=== PATIENT | female | born 1965 | race Caucasian/White ===

== ENCOUNTER 2020-11-10 12:38 | Outpatient (REF) | payer MEDICAID, SELFPAY ==
[2020-11-10 14:32] LABS: Alanine Aminotransferase 12 U/L (0-31); Albumin Level 4.2 g/dL (3.5-5.0); Alkaline Phosphatase 59 U/L (39-117); Anion Gap 12 (12-20); Aspartate Amino Transferase 13 U/L (5-31); Bilirubin Total 0.3 mg/dL (0.0-1.0); Blood Urea Nitrogen 12 mg/dL (9-16); Calcium 9.2 mg/dL (8.4-10.2); Carbon Dioxide 26 mmol/L (22-29); Chloride 107 mmol/L (96-108); Estimated Glomerular Filt Rate > 60; Glucose Random 93 mg/dL (60-115); Potassium 4.3 mmol/L (3.3-5.1); Sodium 141 mmol/L (135-145); Total Protein 7.4 g/dL (6.5-8.0)
[2020-11-10 14:53] LABS: Vitamin D 25-OH Total 29.7 ng/mL (>30)
[2020-11-11 15:56] LABS: Calcium (PTHI) 9.4 mg/dL (8.6-10.4); PTHI 47 pg/mL (14-64)
== END 2020-11-10 12:39 | disposition home or self-care (01) ==
LOC: HO.LAB 12:38
PROVIDERS: PCP Emergency Medicine; Visit Provider Internal Medicine
DX: E55.9 Vitamin D deficiency, unspecified (principal); R73.03 Prediabetes; Z86.39 Personal history of other endocrine, nutritional and metabolic disease; Z79.899 Other long term (current) drug therapy
CPT/HCPCS: 36415; 80053; 82306; 82330; 83970; 84100; 99202

== ENCOUNTER 2020-12-09 10:28 | Outpatient (REF) | payer MEDICAID, SELFPAY ==
--- NOTE | ~2020-12-09 | MM_ITS ---
EXAMINATION: BONE DENSITOMETRY CLINICAL INDICATION: Personal history of other endocrine, nutritional. COMPARISON: None (current study represents initial baseline exam). TECHNIQUE: Using a [employer] DXA System (software version: 13.1) manufactured by [employer], dual-energy x-ray absorptiometry was performed of the lumbar spine, left hip and left forearm radius 33%. The images are of good technical quality. Summary results are attached. FINDINGS: AP SPINE L1-L4: BMD 1.018 g/cm2, Z-score -1.5, T-score -1.4, osteopenia. LEFT FEMUR, NECK: BMD 0.850 g/cm2, Z-score -1.0, T-score -1.4, osteopenia. LEFT FEMUR, TOTAL: BMD 1.005 g/cm2, Z-score 0.0, T-score 0.0, normal. LEFT FOREARM RADIUS 33%: BMD 0.742 g/cm2, Z-score -1.0, T-score -1.5, osteopenia. IDENTIFIED RISK FACTORS: Hyperparathyroidism, menopause. HISTORY OF FRACTURE: None listed. MEDICATIONS: None listed. MM/XR DEXA appendicular skeleton IMPRESSION: 1. DIAGNOSIS: Osteopenia based on the lowest T-score value of -1.5 in the forearm radius 33% applying World Health Organization criteria. 2. 10-YEAR FRACTURE RISK PREDICTION, FRAX: Major osteoporotic fracture (clinical spine, forearm, hip or shoulder) 3.1%. Hip fracture 0.2%. 3. Treatment Recommendations: NOF guidelines recommend consideration for treatment in postmenopausal women and men age 50 and older presenting with the following: -A hip or vertebral (clinical or morphometric) fracture. -T-score less than or equal to -2.5 at the femoral neck or spine after appropriate evaluation to exclude secondary causes. -Low bone mass at the hip or spine and a 10-year fracture probability by FRAX of greater than or equal to 3% for hip fracture or greater than or equal to 20% for major osteoporotic fracture based on the [place] adapted WHO algorithm. 4. Other Recommendations: All treatment decisions require clinical judgment and consideration of individual patient factors, including patient preferences, comorbidities, previous drug use, risk factors not captured in the FRAX model (e.g. frailty, falls, vitamin D deficiency, increased bone turnover, interval significant decline in bone density) and possible under or overestimation of fracture risk by FRAX. Additional medical evaluation for secondary cause of low bone mineral density may be appropriate. FUTURE SCAN RECOMMENDATION: People with diagnosed cases of osteoporosis or at high risk for fracture should have regular bone mineral density tests. For patients eligible for Medicare, routine testing is allowed once every 2 years. The testing frequency can be increased to one year for patients who have rapidly progressing disease, those who are receiving or discontinuing medical therapy to restore bone mass, or have additional risk factors.
--- NOTE | ~2020-12-09 | MM_ITS ---
EXAMINATION: MM SCREENING DIGITAL BREAST TOMOSYNTHESIS, BILATERAL CLINICAL INFORMATION: Screening. Asymptomatic. The lifetime risk of breast cancer based on the Tyrer-Cuzick Model is 7%. COMPARISON: Mammography: 10/02/2019, 09/26/2018, 09/07/2017 TECHNIQUE: Digital breast tomosynthesis is performed in both the craniocaudal and mediolateral oblique views along with computer-aided detection (CAD). Synthesized 2D images are generated from the tomosynthesis. Additional bilateral CC and bilateral MLO views are provided. FINDINGS: The breasts are almost entirely fatty (ACR BI-RADS breast composition Category a). There are no significant masses, abnormal calcifications, or other abnormalities. Background stromal markings are stable. Skin contours are smooth. No significant changes. MM/MM tomosynthesis screening BI IMPRESSION: No mammographic evidence of malignancy. ASSESSMENT: BI-RADS 1: Negative RECOMMENDATION: Routine annual mammography screening. This patient's information was entered into a reminder system with a target due date for their next mammogram.
== END 2020-12-09 10:29 | disposition home or self-care (01) ==
LOC: HO.MAMMO 10:28
PROVIDERS: Visit Provider Nurse Practitioner Primary Care
DX: Z12.31 Encounter for screening mammogram for malignant neoplasm of breast (principal); Z13.820 Encounter for screening for osteoporosis; E21.3 Hyperparathyroidism, unspecified; Z86.39 Personal history of other endocrine, nutritional and metabolic disease; Z78.0 Asymptomatic menopausal state
CPT/HCPCS: 77063; 77067; 77080; 77081

== ENCOUNTER → 2021-04-13 08:18 | Outpatient (BNVA) | payer MEDICAID, SELFPAY | PROVIDERS: PCP Emergency Medicine; Visit Provider Internal Medicine ==

== ENCOUNTER 2021-12-15 10:53 | Outpatient (REF) | payer MEDICAID, SELFPAY ==
--- NOTE | ~2021-12-15 | MM_ITS ---
EXAMINATION: MM SCREENING DIGITAL BREAST TOMOSYNTHESIS, BILATERAL CLINICAL INFORMATION: Screening. Asymptomatic. The lifetime risk of breast cancer based on the Tyrer-Cuzick Model is 7%. COMPARISON: Mammography: 12/09/2020, 10/02/2019, 09/26/2018 TECHNIQUE: Digital breast tomosynthesis is performed in both the craniocaudal and mediolateral oblique views along with computer-aided detection (CAD). Synthesized 2D images are generated from the tomosynthesis. Additional right CC view is provided. FINDINGS: The breasts are almost entirely fatty (ACR BI-RADS breast composition Category a). There are no significant masses, abnormal calcifications, or other abnormalities. Stromal markings are normal and similar to prior studies. There is no developing density or architectural abnormality. The axilla are unremarkable. No significant changes. MM/MM tomosynthesis screening BI IMPRESSION: No mammographic evidence of malignancy. ASSESSMENT: BI-RADS 1: Negative RECOMMENDATION: Routine annual mammography screening. This patient's information was entered into a reminder system with a target due date for their next mammogram.
== END 2021-12-15 10:54 | disposition home or self-care (01) ==
LOC: HO.MAMMO 10:53
PROVIDERS: PCP Nurse Practitioner Primary Care; Visit Provider Internal Medicine
DX: Z12.31 Encounter for screening mammogram for malignant neoplasm of breast (principal)
CPT/HCPCS: 77063; 77067

== ENCOUNTER 2022-01-16 06:36 | Outpatient (REF) | payer MEDICAID, SELFPAY ==
[2022-01-16 07:31] LABS: Hematocrit 39.4 % (37.0-47.0); Hemoglobin 12.7 g/dl (12.0-16.0); Mean Corpuscular HGB Conc 32.2 g/dl (31.0-35.0); Mean Corpuscular Hemoglobin 28.9 pg (27.0-33.0); Mean Corpuscular Volume 89.5 fL (80.0-98.0); Mean Platelet Volume 11.3 fL (9.4-12.3); Platelet Count 307 X10*3/uL (160-400); Red Cell Distribution Width 13.4 % (11.0-16.0); White Blood Count 8.4 X10*3/uL (4.8-10.8)
[2022-01-16 08:02] LABS: Creatinine Urine 180.37 mg/dL; Microalbum/Creatinine Ratio Ur 4.9 ug/mg cr
[2022-01-16 08:12] LABS: Anion Gap 16 (12-20); Blood Urea Nitrogen 11 mg/dL (9-16); Calcium 8.8 mg/dL (8.4-10.2); Carbon Dioxide 23 mmol/L (22-29); Chloride 105 mmol/L (96-108); Cholesterol 231 mg/dL; Estimated Glomerular Filt Rate > 60; Glucose Random 116 mg/dL (60-115); HDL Cholesterol 59 mg/dL; LDL Cholesterol Calculated 153 mg/dl; Potassium 4.5 mmol/L (3.3-5.1); Sodium 139 mmol/L (135-145); Triglycerides 98 mg/dL; Vitamin D 25-OH Total 26.6 ng/mL (>30)
== END 2022-01-16 06:37 | disposition home or self-care (01) ==
LOC: HO.LAB 06:36
PROVIDERS: PCP Nurse Practitioner Primary Care; Visit Provider Nurse Practitioner Primary Care
DX: Z00.00 Encounter for general adult medical examination without abnormal findings (principal); E78.5 Hyperlipidemia, unspecified; I10 Essential (primary) hypertension; R73.03 Prediabetes
CPT/HCPCS: 80048; 80061; 82043; 82306; 85027

== ENCOUNTER 2022-12-21 11:37 | Outpatient (REF) | payer MEDICAID, SELFPAY | END 2022-12-21 11:38 | disposition home or self-care (01) | LOC: HO.MAMMO 11:37 | PROVIDERS: PCP Nurse Practitioner Primary Care; Visit Provider Nurse Practitioner Primary Care | DX: Z12.31 Encounter for screening mammogram for malignant neoplasm of breast (principal) | CPT/HCPCS: 77063; 77067 ==

== ENCOUNTER → 2022-12-21 12:00 | Outpatient (BNV) | payer MEDICAID, SELFPAY | PROVIDERS: PCP Nurse Practitioner Primary Care; Visit Provider Radiology Diagnostic Radiology | DX: Z12.31 Encounter for screening mammogram for malignant neoplasm of breast (principal) | CPT/HCPCS: 77063; 77067 ==

== ENCOUNTER 2023-09-20 08:48 | Outpatient (REF) | payer MEDICAID, SELFPAY ==
[2023-09-20 12:24] LABS: Anion Gap 11 (12-20); Blood Urea Nitrogen 14 mg/dL (9-16); Calcium 8.8 mg/dL (8.4-10.2); Carbon Dioxide 26 mmol/L (22-29); Chloride 108 mmol/L (96-108); Cholesterol 241 mg/dL (<200); Estimated Glomerular Filt Rate > 60; Glucose Random 131 mg/dL (60-115); HDL Cholesterol 62 mg/dL (>40); LDL Cholesterol Calculated 157 mg/dL (<100); Sodium 141 mmol/L (135-145); Triglycerides 110 mg/dL (<150)
[2023-09-20 12:34] LABS: Creatinine Urine 198.52 mg/dL; Microalbum/Creatinine Ratio Ur 63.9 ug/mg cr (<30)
== END 2023-09-20 08:49 | disposition home or self-care (01) ==
LOC: HO.HHCL 08:48
PROVIDERS: Visit Provider Nurse Practitioner Primary Care
DX: E11.69 Type 2 diabetes mellitus with other specified complication (principal); E78.5 Hyperlipidemia, unspecified
CPT/HCPCS: 36415; 80048; 80061; 82043; 82570

== ENCOUNTER 2023-12-27 12:07 | Outpatient (REF) | payer MEDICAID, SELFPAY ==
--- NOTE | ~2023-12-27 | MM_ITS ---
EXAMINATION: MM SCREENING DIGITAL BREAST TOMOSYNTHESIS, BILATERAL CLINICAL INFORMATION: Screening. Asymptomatic. COMPARISON: Mammography: Comparison is made with available priors TECHNIQUE: Digital breast mammography with tomosynthesis is performed in both the craniocaudal and mediolateral oblique views along with computer-aided detection (CAD). FINDINGS: There are scattered areas of fibroglandular density (ACR BI-RADS breast composition Category b). There are no significant masses, abnormal calcifications, or other abnormalities. MM/MM tomosynthesis screening BI IMPRESSION: No mammographic evidence of malignancy. ASSESSMENT: BI-RADS BI-RADS 1 - Negative RECOMMENDATION: Routine annual mammography screening. 1 year F/U This examination should not preclude the clinical evaluation of a suspicious palpable abnormality. This patient's information was entered into a reminder system with a target due date for their next mammogram. Electronically signed by: Zuri Encinas DO 01/08/2024 05:50 PM EDT
== END 2023-12-27 12:08 | disposition home or self-care (01) ==
LOC: HO.MAMMO 12:07
PROVIDERS: PCP Nurse Practitioner Primary Care; Visit Provider Nurse Practitioner Primary Care
DX: Z12.31 Encounter for screening mammogram for malignant neoplasm of breast (principal)
CPT/HCPCS: 77063; 77067

== ENCOUNTER → 2023-12-27 12:30 | Outpatient (BNV) | payer MEDICAID, SELFPAY | PROVIDERS: PCP Nurse Practitioner Primary Care; Visit Provider Internal Medicine | DX: Z12.31 Encounter for screening mammogram for malignant neoplasm of breast (principal) | CPT/HCPCS: 77063; 77067 ==

== ENCOUNTER 2024-07-31 13:59 | Outpatient (REF) | payer MEDICAID, SELFPAY ==
--- NOTE | ~2024-07-31 | MM_ITS ---
EXAMINATION: DXA BONE DENSITY AXIAL HISTORY: osteopenia TECHNIQUE: [employer]tec Dual energy absorptiometry (DEXA) of the lumbar spine, total left hip,, femoral neck, and distal radius was performed. COMPARISON: Comparison is made with the prior examination dated 12/19/2020. FINDINGS: The bone mineral density of the lumbar spine is 0.960 with a T-score of -1.8, and a Z-score of -1.7. This is indicative of osteopenia. This represents a BMD change of -5.7% compared to the prior exam. This is statistically significant. The bone mineral density of the left total hip is 0.964 with a T-score of -0.3, and a Z-score of -0.2. This is indicative of normal bone mineral density. This represents a BMD change of -4.1% compared to the prior exam. This is statistically significant. The bone mineral density of the left femoral neck is 0.812 with a T-score of -1.6, and a Z-score of -1.1. This is indicative of osteopenia. This represents a BMD change of -4.5% compared to the prior exam. The bone mineral density of the distal radius is 0.725 with a T-score of -1.7, and a Z-score of -0.9. This is indicative of osteopenia. This represents a BMD change of -2.3% compared to the prior exam. This is not statistically significant. FRACTURE RISK: The FRAX index suggests a ten year probability of major osteoporotic fracture of 3.9%, and of hip fracture 0.3%. MM/XR DEXA axial skeleton IMPRESSION: Based on bone mineral density, and according to World Health Organization (WHO) criteria, the diagnosis is consistent with osteopenia. All bone density values are in grams per centimeter squared (g/cm2). Statistically, 68% of repeat scans fall within 1 SD (+/- 0.010 g/cm2 for AP spine L1-L4) and 1 SD (+/- 0.012 g/cm2 for femur total) FRAX is a trademark of the [employer]'s [place] for Metabolic Bone Disease, a World Health Organization (WHO) Collaborating Center. Electronically signed by: Carlos Romero MD 07/31/2024 03:15 PM EDT RP
--- OUTSIDE RECORDS SUMMARY | 2024-07-31 16:13 | XMS_ITS | Clinical Summary ---
Author Organization [employer] Address [address] [place] [address] Care Team Providers Care Money Examiner Name Role Phone David Dean Primary Care Provider [phone] Allergies No known active allergies Medications FREESTYLE LITE test stripIndications: Type 2 diabetes mellitus with hyperlipidemia (CMS/HCC) (CMS/HCC) Use to check blood sugar twice daily or more as needed 100 each 12 06/15/19 24 Active Blood Glucose Monitoring Suppl (FreeStyle Lite) w/Device kitIndications:Ty pe 2 diabetes mellitus with hyperlipidemia (CMS/HCC) (CMS/HCC) 1 each in the morning. 1 kit 06/15/19 24 Active atorvastatin (Lipitor) 10 MG tabletIndications :Type 2 diabetes mellitus with hyperlipidemia (CMS/HCC) (CMS/HCC) Take 1 tablet (10 mg) by mouth at bedtime. 90 tablet 3 06/20/19 25 2025 Active metFORMIN XR (Glucophage-XR) 500 MG 24 hr tabletIndications :Healthcare maintenance Take 2 tablets (1,000 mg) by mouth with breakfast and with evening meal. 360 tablet 3 06/20/19 25 Active Trulicity 0.75 MG/0.5ML solution auto-injectorIndi cations:Type 2 diabetes mellitus with hyperlipidemia (CMS/HCC) (CMS/HCC) INJECT 0.75 MG UNDER THE SKIN 1 (ONE) TIME PER WEEK. 2 mL 07/15/19 25 Active naproxen (Naprosyn) 500 MG tabletIndications :Pain TAKE 1 TABLET BY MOUTH TWICE A DAY NEEDED. TAKE WITH FOOD. 60 tablet 2 07/15/19 25 Active lisinopril 40 MG tabletIndications :Essential hypertension TAKE 1 TABLET BY MOUTH EVERY DAY 90 tablet 3 07/15/19 25 Active UltiCare Alcohol Swabs 70 % padsIndications:T ype 2 diabetes mellitus with hyperlipidemia (CMS/HCC) ([facility]) 1 swab TID for cleaning skin 100 each 11 07/16/19 25 Active naproxen (Naprosyn) 500 MG tabletIndications :Pain TAKE 1 TABLET BY MOUTH TWICE A DAY NEEDED. TAKE WITH FOOD. 60 tablet 2 06/06/19 24 2024 Discontinued Alcohol Swabs padsIndications:T ype 2 diabetes mellitus with hyperlipidemia (CMS/HCC) ([facility]) 1 each if needed (to clean skin). 100 each 11 06/15/19 24 2024 Discontinued lisinopril 40 MG tabletIndications :Essential hypertension TAKE 1 TABLET BY MOUTH EVERY DAY 90 tablet 3 07/20/19 24 2024 Discontinued(R eorder (will not trigger notification to Pharmacy)) Dulaglutide (Trulicity) 0.75 MG/0.5ML solution auto-injectorIndi cations:Type 2 diabetes mellitus with hyperlipidemia (CMS/HCC) ([facility]) Inject 0.75 mg under the skin 1 (one) time per week. 2 mL 06/20/19 25 2024 Discontinued UltiCare Alcohol Swabs 70 % padsIndications:T ype 2 diabetes mellitus with hyperlipidemia (CMS/HCC) ([facility]) USE DIRECTED 100 each 07/15/19 25 2024 Discontinued Active Problems Problem Noted Date Diagnosed Date History of hyperparathyroidism 06/19/2024 Osteopenia 06/19/2024 Type 2 diabetes mellitus with hyperlipidemia ( S/HCC) 06/15/2023 Overview (09/21/2023): Lab Results Component Value Date HGBA1C 6.7 (A) 06/15/2023 HGBA1C 6.5 (A) 02/13/2023 HGBA1C 6.4 (H) 07/19/2022 HGBA1C 6.3 (H) 12/27/2020 New dx 01/2023, confirmed 06/2023 Metformin 1G BID Pt declined GLP1 (wants to minimize # of meds) On ACEi Not on statin, ASA Eye exam 05/22/23 bilateral HTN retinopathy Foot exam due The 10-year ASCVD risk score (Hero DAVEY, et al., 2019) is: 9% Values used to calculate the score: Age: 58 years Sex: Female Is Non- : No Diabetic: Yes Tobacco smoker: No Systolic Blood Pressure: 142 mmHg Is BP treated: Yes HDL Cholesterol: 62 mg/dL Total Cholesterol: 241 mg/dL Dyslipidemia 06/26/2018 Anxiety 03/18/2018 Essential hypertension 03/18/2018 Severe obesity 06/07/2011 Resolved Problems Problem Noted Date Diagnosed Date Resolved Date Hyperparathyroidism 01/16/2022 06/20/19 25 Encounters Date Type Department Care Team Description 07/14/2024 Refill [facility] [address] [place] [address] [phone] David Dean ANP Type 2 diabetes mellitus with hyperlipidemia (CMS/HCC) (CMS/HCC) 07/13/2024 Refill [facility] [address] [place] [address] [phone] David Dean ANP Type 2 diabetes mellitus with hyperlipidemia (CMS/HCC) (CMS/HCC); Type 2 diabetes mellitus with hyperlipidemia (CMS/HCC) (CMS/HCC); Pain; Essential hypertension 07/13/2024 Refill [facility] [address] [place] [address] [phone] Jina Mcconnell MD Essential hypertension 07/04/2024 Telephone [facility] [address] [place] [address] [phone] David Dean ANP appointment cancel on 09/09/24 (I book the appt on 09/23/24 follow up Dm.) 07/04/2024 Travel 06/19/2024 9:30 AM EDT Office Visit [facility] [address] [place] [address] [phone] David Dean ANP Type 2 diabetes mellitus with hyperlipidemia (CMS/HCC) ([facility]/HCC) (Primary Dx); Essential hypertension; Healthcare maintenance; Osteopenia, unspecified location; History of hyperparathyroidism; Dietary counseling; Exercise counseling 06/19/2024 Travel 06/13/2024 Population Health Risk Score [facility] ([facility]) Department [address] [place] [address] [phone] Provider, Population Health Generic 06/11/2024 Patient Outreach [facility] [address] [place] [address] [phone] David Dean ANP Pre-visit Planning (Pre-visit planning - LVM ) from Last 3 Months Immunizations Name Administration Dates Next Due Hep B, adult 01/20/2010,04/22/2009,03/19/2009 Influenza injectable quadriv alent IIV4 with preservative 02/09/2017,03/10/2016 Influenza injectable quadriv alent preservative free 02/17/2022,01/20/2021,02/16/2019,2017 Influenza, IIV3, injectable 12/16/2013 Influenza, Split (incl. chino fied surface antigen) 12/05/2012,12/11/2011 Influenza, seasonal, injecta ble, preservative free 01/21/2024 MMR 07/28/2010 Pfizer Covid-19 Vaccine 12+ 06/15/2021,,11/26/2020 Pfizer Covid-19 Vaccine 12+ Bivalent 06/20/2022 Pfizer Covid-19 Vaccine 12+ valeriano-sucrose (Barrios Cap) 06/15/2021 Pneumococcal Conjugate PCV 20 06/15/2023 TD (adult), 2 Lf tetanus tox oid, preservative free, adsorbed 06/15/2023,03/24/2005 Tdap 12/05/2012 Zoster, Recombinant 05/19/2021,01/28/2021 Family History Medical History Relation Name Comments Diabetes Father Relation Name Status Comments Father Social History Tobacco Use Types Packs/Day Years Used Date Smoking Tobacco: Never Passive Smoke Exposure: Never Smokeless Tobacco: Never Alcohol Use Standard Drinks/Week Comments Not Currently 0 (1 standard drink = 0.6 oz pur e alcohol) Alcohol Answer Date Recorded Frequency of Alcohol Consumption Not on file 01/21/2024 Average Number of Drinks Not on file 024 Frequency of Binge Drinking Not on file 01/01 Score 0 01/21/2024 Depression Answer Date Recorded Patient Health Questionnaire-9 Score 0 01/21/2024 Patient Health Questionnaire-9 Score 0 01/21/2024 Last PHQ-9: Questionnaire Data Not on file 1 Housing Stability Answer Date Recorded What is your housing situation today? I have torsten abdi 01/18/[address] you li ve. Do you have problems with any of the following? None of the above 01/18/2023 Food Insecurity Answer Date Recorded Within the past 12 months, y ou worried that your food would run out before you got money to buy more: Never True 01/18/2023 Within the past 12 months,th e food you bought just didn't last and you didn't have enough money to get more: Never True Transportation Answer Date Recorded In the past 12 months, has l ack of transportation kept you from medical appts, meetings, work or from getting things needed for daily living? No 01/18/2023 Utilities Answer Date Recorded In the past 12 months, has t he electric, gas, oil or water company threatened to shut off services in your home? No 01/18/2023 Depression Answer Date Recorded Patient Health Questionnaire-2 Score 0 01/21/2024 Comments Unknown Sex and Gender Information Value Date Recorded Sex Assigned at Female 01/30/2022 10:18 AM EDT Legal Sex Female 10:18 AM EDT Gender Identity Choose not to disclose 10:18 AM EDT Sexual Orientation Choose not to disclose 2021 10:18 AM EDT Last Filed Vital Signs Vital Sign Reading Time Taken Comments Blood Pressure 140/90 06/19/2024 10:06 AM EDT Pulse 66 06/19/2024 9:36 AM EDT Temperature 36.3 ??C (97.3 ??F) 06/19/2024 9:36 AM ED T Respiratory Rate 20 06/19/2024 9:36 AM EDT Oxygen Saturation 99% 06/19/2024 9:36 AM EDT Inhaled Oxygen Concentration - - Weight 96.1 kg (211 lb 12.8 oz) 06/19/2024 9:36 AM EDT Height 146 cm (4' 9.48 ) 06/19/2024 9:36 AM EDT Body Mass Index 45.07 06/19/2024 9:36 AM EDT Plan of Treatment Upcoming Encounters Date Type Department Care Team (Late st Contact Info) Description 09/23/2024 10:15 AM EDT Office Visit [facility] [address] [place] [phone] David Dean ANP [address] [place] [phone] Health Maintenance Due Date Last Done Comments CT Colonography 1965 Colonoscopy 1965 Colorectal Cancer Screening 1965 FIT DNA/Cologuard 1965 FIT 1965 FOBT 1965 Sigmoidoscopy 1965 COVID-19 Vaccine ( season) 2023 06/20/2022, 06/15/2021, 06/15/2021, Additional history exists SDOH Screening 06/05/2024 06/06/2023 Diabetes: Urine Protein Screening 09/19/2024 09/20/2023, 07/19/2022, 01/16/2022, Additional history exists Lipid Panel 09/19/2024 09/20/2023, 12/02, 05/25/2020 Diabetes: Hemoglobin A1C 12/20/2024 025, 01/21/2024, 06/15/2023, Additional history exists Mammogram 12/26/2024 12/27/2023, 12/02, 12/15/2021, Additional history exists Alcohol/Substance Use Screening 01/20/2025 01/21/2024 Depression Screening 01/20/2025 01/21/2024, 01/21/20 24 Diabetes: Foot Exam 01/20/2025 01/21/2024, 01/21/2024, 01/21/2024, Additional history exists Pap Smear 02/27/2025 02/27/2022 Eye Exam 05/22/2025 Tobacco Screening 06/19/2025 06/19/2024 Cervical Cancer Screening 02/27/2027 HPV/Cotest 02/27/2027 02/27/2022 DTaP/Tdap/Td Vaccines (3 - Td or Tdap) 06/14/2033 06/15/2023, 12/05/2012, 03/24/2005 RSV Patients and Patients Aged 60 years or older (1 - 1-dose 75+ series) 02/07/2040 Hepatitis B Vaccines Completed 01/20/2010, 04/22/2009, 03/19/2009 HIV Screening Completed 05/25/2020 Hepatitis C Screening Completed 05/25/2020 Zoster Vaccines Completed 05/19/2021, 01/28/2021 Pneumococcal Vaccine: 50+ Years Completed 06/15/2023 Influenza Vaccine Completed 01/21/2024, , 01/20/2021, Additional history exists HIB Vaccines Aged Out No longer eligi ble based on patient's age to complete this topic HPV Vaccines Aged Out No longer eligi ble based on patient's age to complete this topic Hepatitis A Vaccines Aged Out No long er eligible based on patient's age to complete this topic IPV Vaccines Aged Out No longer eligi ble based on patient's age to complete this topic Meningococcal Vaccine Aged Out No jennifer luis carlos eligible based on patient's age to complete this topic RSV under 20 months Aged Out No longe r eligible based on patient's age to complete this topic Rotavirus Vaccines Aged Out No longer eligible based on patient's age to complete this topic Procedures Procedure Name Priority Date/Time Associated Diagnosis Comments BD DEXA AXIAL Routine 07/31/2024 2:10 PM EDT History of hyperparathyroidism POCT GLYCATED HEMOGLOBIN, TOTAL Routine 06/19/2024 9:38 AM EDT Type 2 diabetes mellitus with hyperlipidemia (CMS/HCC) (CMS/HCC) POCT GLUCOSE Routine 06/19/2024 9:38 AM EDT Type 2 diabetes mellitus with hyperlipidemia (CMS/HCC) (CMS/HCC) BI MAMMOGRAM SCREENING TOMOSYNTHESIS BILATERAL Routine 12/27/2023 12:30 PM EDT ALBUMIN, RANDOM URINE W/CREATININE Routine 09/20/2023 8:49 AM EDT Type 2 diabetes mellitus with hyperlipidemia (CMS/HCC) (CMS/HCC) LIPID PANEL, STANDARD Routine 09/20/2023 8:44 AM EDT Type 2 diabetes mellitus with hyperlipidemia (CMS/HCC) (CMS/HCC) THINPREP IMAGING PAP AND HPV MRNA E6/E7 WITH REFLEX TO HPV 16,18/45 Routine 02/27/2022 11:36 AM EST ZZZ HISTORICAL HEPATITIS C AB W/REFL TO HCV RNA, QN, PCR Routine 05/25/2020 8:55 AM EST HIV 1/2 ANTIGEN/ANTIBODY, FOURTH GENERATION W/RFL Routine 05/25/2020 8:55 AM EST from Last 3 Months or Most Recently Relevant to Health Maintenance Results * BD DEXA Axial (07/31/2024 2:10 PM EDT) Anatomical Region Laterality Modality Body Radiographic Anabell ging 07/31/2024 2:10 PM EDT Narrative 07/31/2024 3:18 PM EDT ? [facility] [place] ? [address] ?[place] [address] ?[phone] ? Mammography Report ? Signed ? Patient: Eugene,Roxana Egan ?MR#: [id number] ?? 1930 ? : 1965 ?Acct:[id number] ? Age/Sex: 59 / F ?ADM Date: // ? Loc: HO.MAMMO ? Attending Dr: David Dean BOAT TENDER ? Ordering Physician: DIANNE,DAVID FIGUEROA ?Results: ? Date of Service: //25 ?Follow Up: ? Procedure(s): XR DEXA axial skeleton ?? Accession Number(s): [id number] ? cc: DIANNE,DAVID FIGUEROA ? EXAMINATION: ??DXA BONE DENSITY AXIAL ? HISTORY: ??osteopenia ? TECHNIQUE: KIYATEC Dual energy absorptiometry (DEXA) ?? of the lumbar spine, total left hip,, femoral neck, and distal radius ?? was performed. ? COMPARISON: Comparison is made with the prior examination dated ?? 12/19/2020. ? FINDINGS: ? The bone mineral density of the lumbar spine is 0.960 with a T-score of ?? -1.8, and a Z-score of -1.7. This is indicative of osteopenia. ? This represents a BMD change of -5.7% compared to the prior exam. ??This ?? is statistically significant. ? The bone mineral density of the left total hip is 0.964 with a T-score ?? of -0.3, and a Z-score of -0.2. This is indicative of normal bone ?? mineral density. ? This represents a BMD change of -4.1% compared to the prior exam. ??This ?? is statistically significant. ? The bone mineral density of the left femoral neck is 0.812 with a ?? T-score of -1.6, and a Z-score of -1.1. This is indicative of ?? osteopenia. ? This represents a BMD change of -4.5% compared to the prior exam. ? The bone mineral density of the distal radius is 0.725 with a T-score ?? of -1.7, and a Z-score of -0.9. This is indicative of osteopenia. ? This represents a BMD change of -2.3% compared to the prior exam. ??This ?? is not statistically significant. ? FRACTURE RISK: ?? The FRAX index suggests a ten year probability of major osteoporotic ?? fracture of 3.9%, and of hip fracture 0.3%. ? MM/XR DEXA axial skeleton ?? IMPRESSION: ?? Based on bone mineral density, and according to World Health ?? Organization (WHO) criteria, the diagnosis is consistent with ?? osteopenia. ? All bone density values are in grams per centimeter squared (g/cm2). ?? Statistically, 68% of repeat scans fall within 1 SD (+/- 0.010 g/cm2 ?? for AP spine L1-L4) and 1 SD (+/- 0.012 g/cm2 for femur total) ?? FRAX is a trademark of the [employer]'s ?? [place] for Metabolic Bone Disease, a World Health Organization (WHO) ?? Collaborating Center. ? Electronically signed by: ??Carlos Romero MD ??07/31/2024 03:15 PM EDT ?? RP ? Dictated By: ?Carlos Romero MD ? Signed By: ?<Electronically signed by Carlos Romero MD in OV> ?07/31/241514 ? DD/ 1410 ? TD/TT: 07/31/24 1430 ? Emergency Specialist: ? Procedure Note Joseph Otero - 07/31/2024 [place] [facility] [address] [place] [address] Mammography Report Signed Patient: Roxana Eugene [facility]#: [id number] 1930 : 1965Acct:[id number] Age/Sex: 59 / FADM Date: 07/31/24 Loc: HO.MAMMO Attending Dr: David Dean NP Ordering Physician: DAVID DEANesults: Date of Service: 07/31/24Follow Up: Procedure(s): XR DEXA axial skeleton Accession Number(s): [id number] cc: DAVID DEAN NP EXAMINATION: DXA BONE DENSITY AXIAL HISTORY: osteopenia TECHNIQUE: KIYATEC Dual energy absorptiometry (DEXA) of the lumbar spine, total left hip,, femoral neck, and distal radius was performed. COMPARISON: Comparison is made with the prior examination dated 12/19/2020. FINDINGS: The bone mineral density of the lumbar spine is 0.960 with a T-score of -1.8, and a Z-score of -1.7. This is indicative of osteopenia. This represents a BMD change of -5.7% compared to the prior exam. This is statistically significant. The bone mineral density of the left total hip is 0.964 with a T-score of -0.3, and a Z-score of -0.2. This is indicative of normal bone mineral density. This represents a BMD change of -4.1% compared to the prior exam. This is statistically significant. The bone mineral density of the left femoral neck is 0.812 with a T-score of -1.6, and a Z-score of -1.1. This is indicative of osteopenia. This represents a BMD change of -4.5% compared to the prior exam. The bone mineral density of the distal radius is 0.725 with a T-score of -1.7, and a Z-score of -0.9. This is indicative of osteopenia. This represents a BMD change of -2.3% compared to the prior exam. This is not statistically significant. FRACTURE RISK: The FRAX index suggests a ten year probability of major osteoporotic fracture of 3.9%, and of hip fracture 0.3%. MM/XR DEXA axial skeleton IMPRESSION: Based on bone mineral density, and according to World Health Organization (WHO) criteria, the diagnosis is consistent with osteopenia. All bone density values are in grams per centimeter squared (g/cm2). Statistically, 68% of repeat scans fall within 1 SD (+/- 0.010 g/cm2 for AP spine L1-L4) and 1 SD (+/- 0.012 g/cm2 for femur total) FRAX is a trademark of the [employer]'s [place] for Metabolic Bone Disease, a World Health Organization (WHO) Collaborating Center. Electronically signed by: Carlos Romero MD 07/31/2024 03:15 PM EDT Dictated By: Carlos Romero MD Signed By: <Electronically signed by Carlos Romero MD in OV> 07/31/24 1515 DD/ 1410 TD/TT: 07/31/24 1430 Emergency Specialist: us David Dean ANP IMG DXA PROCEDURES Final Result * (ABNORMAL) POCT HGB A1C (06/19/2024 9:38 AM EDT) Hemoglobin A1C 6.7(A) 4.0 - 6.0 % QC Media Lot # [id number] Lot# Expiration Date [id number] Blood 06/19/2024 9:38 AM EDT David Dean ANP POINT OF CARE TEST ENTER/EDIT OR DERABLES Final Result * POCT Glucose (06/19/2024 9:38 AM EDT) Glucose Blood, POC 185 60 - 200 mg/dL QC Media Lot # [id number] Lot# Expiration Date 8262,[id number] Blood Capillary blood specimen / Unknown 06/19/2024 9:38 AM EDT David Dean ANP POINT OF CARE TEST ENTER/EDIT OR DERABLES Final Result * BI Mammogram Screening Tomosynthesis Bilateral (12/27/2023 12:30 PM EDT) Anatomical Region Laterality Modality Breast Bilateral Mammography 12/27/2023 12:3 0 PM EDT Narrative 01/08/2024 5:53 PM EDT ? [facility] ? [address] ?[place] [address] ? Mammography Report ? Signed ? Patient: Euegne,Roxana M ?MR#: [id number] ?? 1930 ? : 1965 ?Acct:[id number] ? Age/Sex: 58 / F ?ADM Date: 09/26/24 ? Loc: HO.MAMMO ? Attending Dr: David Dean BOAT TENDER ? Ordering Physician: DEAN,DAVID BOAT TENDER ?Results: 1Negative ? Date of Service: 12/27/23 ?Follow Up: 1 Year From Orig ?? inal Mammogram ? Procedure(s): MM tomosynthesis screening BI ?? Accession Number(s): [id number] ? cc: DAVID DEAN NP ? EXAMINATION: ?? MM SCREENING DIGITAL BREAST TOMOSYNTHESIS, BILATERAL ? CLINICAL INFORMATION: ? Screening. Asymptomatic. ? COMPARISON: ?? Mammography: Comparison is made with available priors ? TECHNIQUE: ?? Digital breast mammography with tomosynthesis is performed in both the ?? craniocaudal and mediolateral oblique views along with computer-aided ?? detection (CAD). ? FINDINGS: ?? There are scattered areas of fibroglandular density (ACR BI-RADS breast ?? composition Category b). ? There are no significant masses, abnormal calcifications, or other ?? abnormalities. ? MM/MM tomosynthesis screening BI ?? IMPRESSION: ?? No mammographic evidence of malignancy. ? ASSESSMENT: ? BI-RADS BI-RADS 1 - Negative ? RECOMMENDATION: ?? Routine annual mammography screening. ? 1 year F/U ? This examination should not preclude the clinical evaluation of a ?? suspicious palpable abnormality. ? This patient's information was entered into a reminder system with a ?? target due date for their next mammogram. ? Electronically signed by: ??Zuri Encinas DO ??01/08/2024 05:50 PM EDT ?? RP ? Dictated By: ?Zuri Encinas DO ? Signed By: ?<Electronically signed by Zuri Encinas, DO in OV> ? 01/08/24 1750 ? DD/ 1230 ? TD/TT: 12/27/23 1250 ? Emergency Specialist: ? Procedure Note Donotuseinterpreter, Image - 01/08/2024 [facility] [address] [place] [address] Mammography Report Signed Patient: Roxana Eugene MMR#: [id number] 1930 : 1965Acct:[id number] Age/Sex: 58 / FADM Date: 12/27/23 Loc: HO.MAMMO Attending Dr: David Dean BOAT TENDER Ordering Physician: DAVID DEAN NPResults: 1Negative Date of Service: 12/27/23Follow Up: 1 Year From Orig inal Mammogram Procedure(s): MM tomosynthesis screening BI Accession Number(s): [id number] cc: DAVID DEAN NP EXAMINATION: MM SCREENING DIGITAL BREAST TOMOSYNTHESIS, BILATERAL CLINICAL INFORMATION: Screening. Asymptomatic. COMPARISON: Mammography: Comparison is made with available priors TECHNIQUE: Digital breast mammography with tomosynthesis is performed in both the craniocaudal and mediolateral oblique views along with computer-aided detection (CAD). FINDINGS: There are scattered areas of fibroglandular density (ACR BI-RADS breast composition Category b). There are no significant masses, abnormal calcifications, or other abnormalities. MM/MM tomosynthesis screening BI IMPRESSION: No mammographic evidence of malignancy. ASSESSMENT: BI-RADS BI-RADS 1 - Negative RECOMMENDATION: Routine annual mammography screening. 1 year F/U This examination should not preclude the clinical evaluation of a suspicious palpable abnormality. This patient's information was entered into a reminder system with a target due date for their next mammogram. Electronically signed by: Zuri Encinas DO 01/08/2024 05:50 PM EDT Dictated By: Zuri Encinas DO Signed By: <Electronically signed by Zuri Encinas DO in OV> 01/08/24 1750 DD/ 1230 TD/TT: 12/27/23 1250 Emergency Specialist: David Dean ANP IMG BI PROCEDURES Edited Result - Final * (ABNORMAL) Albumin, Random Urine W/Creatinine (09/20/2023 8:49 AM EDT) Creatinine, Urine 198.52 mg/dL [facility] Microalbumin Urine 127.0 mg/L [facility] Microalbum Creatinine Ratio Ur 63.9(H) <30 ug/mg cr [facility] Comment:Albumin/Creatinine R atio Reference Ranges: Normal: < 30 ug/mg creatinine Microalbuminuria: 30 - 300 ug/mg creatinineClinical Albuminuria: > 300 ug/mg creatinine Urine 09/20/2023 8:49 AM EDT 09/20/2023 11:27 AM EDT David Dean [facility] URINE ORDERABLES Final Resul t [facility] [address] [place] [address] [phone] * (ABNORMAL) Lipid Panel, Standard (09/20/2023 8:44 AM EDT) Triglycerides 110 <150 mg/dL [facility] Comment:Desirable Triglyceri de: less than 150 mg/dLBorderline High Triglyceride 150-199 mg/dLHigh Triglyceride: 200-499 mg/dLVery High Triglyceride: greater than or equal to 5OO mg/dL Cholesterol 241(H) <200 mg/dL [facility] Comment:Desirable Cholestero l: less than 200 mg/dLBorderline High Cholesterol: 200-239 mg/dLHigh Cholesterol: greater than 239 mg/dL LDL Cholesterol Calculated 157(H) <100 mg/dL [facility] Comment:Desirable LDL: less than 100 mg/dLNear Optimal/Above Optimal LDL: 110- 129 mg/dLBorderline High LDL: 130-159 mg/dLHigh LDL: 160-189 mg/dLVery High LDL: greater than or equal to 190 mg/dL HDL Cholesterol 62 >40 mg/dL [facility] Comment:Desirable HDL: great er than 40 mg/dL Note: This HDL assay may give artificially low results in patients with liver disease. Blood Venous blood specimen / Unknown 09/20/2023 8:44 AM EDT 09/20/2023 11:34 AM EDT David Dean [facility] BLOOD ORDERABLES Final Resul t [facility] [address] [place] [phone] * THINPREP TIS PAP AND HPV mRNA E6/E7 WITH REFLEX TO HPV 16,18/45 (02/27/2022 11:36 AM EST) Clinical Information: [facility] COMMENT SEE COMMENT [facility] Comment: EXPLANATORY NOTE: ? The Pap is a screening test for cervical cancer. It is ?? not a diagnostic test and is subject to false negative ?? and false positive results. It is most reliable when a ?? satisfactory sample, regularly obtained, is submitted ?? with relevant clinical findings and history, and when ?? the Pap result is evaluated along with historic and ?? current clinical information. ?? COMMENT: This Pap test has been evaluated with computer assisted technology. CONVERTED [employer] [facility] Lithographic Photographer Apprentice : SEE COMMENT CONVERTED LEGACY LABS Comment: BK,CT(ASCP) CT screening location: [address] HPV nRNA E6/E7 Not Detected Not Detected CONVERTED [employer] Comment: Methodology: Senior Java J2Ee Developer-Mediated Amplification This assay detects E6/E7 viral messenger RNA (mRNA) from 14 high-risk HPV types (16,18,31,33,35,39,45,51,52,56,58,59,66,68). ? Cervical sources are required for HPV testing. If a vaginal source from a patient who has had a total hysterectomy with removal of cervix was ?? submitted, please contact the testing laboratory for alternative testing options. ?? For additional information, please refer to http://education.Balakam/faq/JMW444d5 (This link if provided for information/ educational purposes only.) Interpretation/R esult: Negative for intraepithelial lesion or malignancy. CONVERTED LEGACY LABS LMP: MENOPAUSAL AT 51 CON VERTED LEGACY LABS Prev. BX: NONE GIVEN CONVERTED LEGACY LABS Prev. PAP: NIL 2012 CONVERTED [facility] LABS SOURCE: Cervix CONVERTED [facility]GACY LABS Statement Of Adequacy: SEE COMMENT CONVERTED LEGACY LABS Comment: Satisfactory for evaluation. Endocervical/transformation zone component present. 02/27/2022 11:3 6 AM EST Diana Dao CN LAB PATHOLOGY ORDERABLES Final Result CONVERTED LEGACY LABS * HEPATITIS C AB W/REFL TO HCV RNA, QN, PCR (05/25/2020 8:55 AM EST) HEPATITIS C ANTIBODY NON-REACT JOHAN NON-REACT JOHAN [facility] INDEX 0.06 <1.00 [facility] Comment: ?? HCV antibody was non-reactive. There is no laboratory ?? evidence of HCV infection. ?? In most cases, no further action is required. However, if recent HCV exposure is suspected, a test for HCV RNA (test code 47330) is suggested. ?? For additional information please refer to http://education.Balakam/faq/VOF21a6 (This link is being provided for informational/ educational purposes only.) ?? 05/25/2020 8:55 AM EST David MARTINEZ HISTORICAL/NON ORDERABLE LABS Fi nal Result Performing Organization Address City/[facility]/ZIP Co de Phone Number [facility] [address] * HIV 1/2 ANTIGEN/ANTIBODY,FOURTH GENERATION W/RFL (05/25/2020 8:55 AM EST) HIV-1/2 ANTIGEN AND ANTIBODIES, 4TH GENERATION W/ REFLEX NON-REACT JOHAN NON-REACT [facility] Comment: HIV-1 antigen and HIV-1/HIV-2 antibodies were not detected. There is no laboratory evidence of HIV infection. ?? PLEASE NOTE: This information has been disclosed to you from records whose confidentiality may be protected by state law. ??If your state requires such protection, then the state law prohibits you from making any further disclosure of the information without the specific written consent of the person to whom it pertains, or as otherwise permitted by law. A general authorization for the release of medical or other information is NOT sufficient for this purpose. ? For additional information please refer to http://education.Balakam/faq/DQV529 (This link is being provided for informational/ educational purposes only.) ? The performance of this assay has not been clinically validated in patients less than 2 years old. ?? 05/25/2020 8:55 AM EST [facility] LAB BLOOD ORDERABLES Final Resul t [facility] Any[address] from Last 3 Months or Most Recently Relevant to Health Maintenance Insurance HSN FULL Care Teams Money Examiner Relationship Specialty Start Date End Date David Dean ANP [address] [place] [address] PCP - General Family Medicine 03/22/20
== END 2024-07-31 14:00 | disposition home or self-care (01) ==
LOC: HO.MAMMO 13:59
PROVIDERS: PCP Nurse Practitioner Primary Care; Visit Provider Nurse Practitioner Primary Care
DX: Z13.820 Encounter for screening for osteoporosis (principal); M85.89 Other specified disorders of bone density and structure, multiple sites; Z86.39 Personal history of other endocrine, nutritional and metabolic disease
CPT/HCPCS: 77080

== ENCOUNTER → 2024-07-31 14:30 | Outpatient (BNV) | payer MEDICAID, SELFPAY | PROVIDERS: PCP Nurse Practitioner Primary Care; Visit Provider Radiology Diagnostic Radiology | DX: E28.39 Other primary ovarian failure (principal) | CPT/HCPCS: 77080 ==

== ENCOUNTER 2024-08-15 07:38 | Outpatient (REF) | payer MEDICAID, SELFPAY ==
--- OUTSIDE RECORDS SUMMARY | 2024-08-15 07:41 | XMS_ITS | Encounter Summary ---
Author Organization [employer] Address [address] [facility] [address] [place] [address] Care Team Providers Care Filing Machine Operator Name Role Phone Shivani Miller ANP Primary Care Provider [phone] Reason for Visit * Reason Comments Med Refill Encounter Details Date Type Department Care Team ([facility] st Contact Info) Description 08/14/2024 Refill [facility] [address] [place], [place] [phone] Shivani Miller ANP [address] [place], [place] [phone] Type 2 diabetes mellitus with hyperlipidemia (CMS/HCC) ([facility]) Social History Tobacco Use Types Packs/Day Years [...] not to disclose 2021 10:18 AM EDT documented as of this encounter Plan of Treatment Upcoming Encounters Date Type Department Care Team (Late st Contact Info) Description 09/23/2024 10:15 AM EDT Office Visit [facility] [address] [place] [phone] Shivani Miller ANP [address] [place] [address] documented as of this encounter Visit Diagnoses Diagnosis Type 2 diabetes mellitus with hyperlipidemia (CMS/HCC) (CMS/HCC) documented in this encounter Additional Health Concerns Assessment Noted Time PHQ-9 Depression Total Score: 0 01/21/20 24 3:05 PM EDT documented as of this encounter Care Teams Filing Machine Operator Relationship Specialty Start Date End Date Shivani Miller ANP [address] [place] [phone] PCP - General Family Medicine 03/22/20 documented as of this encounter
--- OUTSIDE RECORDS SUMMARY | 2024-08-15 07:41 | XMS_ITS | Clinical Summary ---
Author Organization [employer] Address [address] [facility] 7[address] [place] [address] Care Team Providers Care Meal Room Hand Name Role Phone David Dean Primary Care Provider [phone] Allergies No known active allergies Medications FREESTYLE LITE test stripIndications:T ype 2 diabetes mellitus with hyperlipidemia (CMS/HCC) (CMS/HCC) Use to check blood sugar twice daily or more as needed 100 each 12 4 Active Blood Glucose Monitoring Suppl (FreeStyle Lite) w/Device kitIndications:Typ e 2 diabetes mellitus with hyperlipidemia (CMS/HCC) (CMS/HCC) 1 each in the morning. 1 kit 4 Active atorvastatin (Lipitor) 10 MG tabletIndications: Type 2 diabetes mellitus with hyperlipidemia (CMS/HCC) (CMS/HCC) Take 1 tablet (10 mg) by mouth at bedtime. 90 tablet 3 5 06/20/19 26 Active metFORMIN XR (Glucophage-XR) 500 MG 24 hr tabletIndications: Healthcare maintenance Take 2 tablets (1,000 mg) by mouth with breakfast and with evening meal. 360 tablet 3 5 Active Trulicity 0.75 MG/0.5ML solution auto-injectorIndic ations:Type 2 diabetes mellitus with hyperlipidemia (CMS/HCC) (CMS/HCC) INJECT 0.75 MG UNDER THE SKIN 1 (ONE) TIME PER WEEK. 2 mL 5 Active naproxen (Naprosyn) 500 MG tabletIndications: Pain TAKE 1 TABLET BY MOUTH TWICE A DAY NEEDED. TAKE WITH FOOD. 60 tablet 2 5 Active lisinopril 40 MG tabletIndications: Essential hypertension TAKE 1 TABLET BY MOUTH EVERY DAY 90 tablet 3 5 Active UltiCare Alcohol Swabs 70 % padsIndications:Ty pe 2 diabetes mellitus with hyperlipidemia (CMS/HCC) ([facility]) 1 swab TID for cleaning skin 100 each 11 5 Active Active Problems Problem Noted Date Diagnosed Date [...] due The 10-year ASCVD risk score (Hero DK, et al., 2019) is: 9% Values used [...] Encounters Date Type Department Care Team Description 08/14/2024 Refill [facility] [address] [place], [place] [phone] David Dean, JUAN Type 2 diabetes mellitus with hyperlipidemia ([facility]/HCC) ([facility]) 08/05/2024 Telephone [facility] [address] [place], [place] [phone] Diana Medellin, RN Results; Lab Orders 07/14/2024 Refill [facility] [address] [place] [address] David Dean, ANP Type 2 diabetes mellitus with hyperlipidemia (CMS/HCC) ([facility]) 07/13/2024 Refill [facility] [address] [place] [address] David Dean ANP Type 2 diabetes mellitus with hyperlipidemia (CMS/HCC) (CMS/HCC); Type 2 diabetes mellitus with hyperlipidemia (CMS/HCC) (CMS/HCC); Pain; Essential hypertension 07/13/2024 Refill [facility] [address] [place] [phone] Jina Mcconnell MD Essential hypertension 07/04/2024 Telephone [facility] [address] [place] [address] [phone] David Dean ANP appointment cancel on 09/09/24 (I book the appt on 09/23/24 follow up Dm.) 07/04/2024 Travel 06/19/2024 9:30 AM EDT Office Visit [facility] [address] [place] [phone] David Dean ANP Type 2 diabetes mellitus with hyperlipidemia (CMS/HCC) ([facility]/HCC) (Primary Dx); Essential hypertension; Healthcare maintenance; Osteopenia, unspecified location; History of hyperparathyroidism; Dietary counseling; Exercise counseling 06/19/2024 Travel 06/13/2024 Population Health Risk Score [facility] () Department [address] [place] [phone] Provider, Population Health Generic 06/11/2024 Patient Outreach [facility] [address] [place] [phone] David Dean ANP Pre-visit Planning (Pre-visit planning - LVM ) from Last 3 Months Immunizations Immunization Administration Dates Next Due Hep B, adult [...] Description 09/23/2024 10:15 AM EDT Office Visit [facility] [address] [place] [address] David Dean ANP [address] [place] [address] Health Maintenance Due Date Last Done Comments [...] patient's age to complete this topic Meningococcal B Vaccine Aged Out No l onger eligible based on patient's age to complete [...] EDT Narrative 07/31/2024 3:18 PM EDT ? [facility] ? [address] ?[place] [address] ?[phone] ? Mammography Report ? Signed ? Patient: Eugene,Roxana M ?MR#: [id number] ?? 1930 ? : 1965 ?Acct:[id number] ? Age/Sex: 59 / F ?ADM Date: 07/31/24 ? Loc: HO.MAMMO ? Attending Dr: David Dean DEAN OF BOYS ? Ordering Physician: DAVID DEAN NP ?Results: ? Date of Service: 07/31/24 ?Follow Up: ? Procedure(s): XR DEXA axial skeleton ?? Accession Number(s): [id number] ? cc: DAVID DEAN NP ? EXAMINATION: ??DXA BONE DENSITY AXIAL ? HISTORY: ??osteopenia ? TECHNIQUE: [employer] Advance GAMINSIDE Dual energy absorptiometry (DEXA) ?? of the [...] is a trademark of the [employer]'s ?? [place] for Metabolic Bone Disease, a World Health Organization (WHO) ?? Collaborating Center. ? Electronically signed by: ??Carlos Romero MD ??07/31/2024 03:15 PM EDT ?? RP ? Dictated By: ?Carlos Romero MD ? Signed By: ?<Electronically signed by Carlos Romero MD in OV> ?07/31/24 1515 ? DD/ 1410 ? TD/TT: 07/31/24 1430 ? Supervisor Elementary Education: ? Procedure Note Donotuseinterpreter, Image - 07/31/2024 [facility] [address] [place] [address] Mammography Report Signed Patient: Roxana Eugene [facility]#: [id number] 1930 : 1965Acct:[id number] Age/Sex: 59 / FADM Date: 07/31/24 Loc: [facility] Attending Dr: David Dean NP Ordering Physician: DAVID DEAN NPResults: Date of Service: 07/31/24Follow Up: Procedure(s): XR DEXA axial skeleton Accession Number(s): [id number] cc: DAVID DEAN NP EXAMINATION: DXA BONE DENSITY AXIAL HISTORY: osteopenia TECHNIQUE: [employer] Dual energy absorptiometry (DEXA) of the lumbar [...] is a trademark of the [employer]'s [place] for Metabolic Bone Disease, a World Health Organization (WHO) Collaborating Center. Electronically signed by: Carlos Romero MD 07/31/2024 03:15 PM EDT RP Dictated By: Carlos Romero MD Signed By: <Electronically signed by Carlos Romero MD in OV> 07/31/24 1515 DD/ 1410 TD/TT: 07/31/24 1430 Supervisor Elementary Education: us David MARTINEZ IMG DXA PROCEDURES Final Result * (ABNORMAL) POCT HGB A1C (06/19/2024 9:38 AM EDT) Hemoglobin A1C 6.7(A) 4.0 - 6.0 % QC Media Lot # [id number] Lot# Expiration Date Blood 06/19/2024 9:38 AM EDT us David MARTINEZ POINT OF CARE TEST ENTER/EDIT OR DERABLES Final Result * POCT Glucose (06/19/2024 9:38 AM EDT) Glucose Blood, POC 185 60 - 200 mg/dL QC Media Lot # [id number] Lot# Expiration Date 654, Blood Capillary blood specimen / Unknown 06/19/2024 9:38 AM EDT us David MARTINEZ POINT OF CARE TEST ENTER/EDIT OR DERABLES Final Result * BI Mammogram Screening Tomosynthesis Bilateral (12/27/2023 12:30 PM EDT) Anatomical Region Laterality Modality Breast Bilateral Mammography 12/27/2023 12:3 0 PM EDT Narrative 01/08/2024 5:53 PM EDT ? [facility] ? [address] ?[place] [address] ? Mammography Report ? Signed ? Patient: Roxana Eugene ?MR#: [id number] ?? 1930 ? : 1965 ?Acct:[id number] ? Age/Sex: 58 / F ?ADM Date: 12/26/ ? Loc: HO.MAMMO ? Attending Dr: David Dean DEAN OF BOYS ? Ordering Physician: DIANNE,DAVID FIGUEROA ?Results: 1Negative ? Date of Service: 12/26/ ?Follow Up: 1 Year From Orig ?? inal Mammogram ? Procedure(s): MM tomosynthesis screening BI ?? Accession Number(s): [id number] ? cc: DIANNE,DAVID FIGUEROA ? EXAMINATION: ?? MM SCREENING DIGITAL BREAST [...] ??Zuri Encinas DO ??01/08/2024 05:50 PM EDT ? Dictated By: ?Zuri Encinas DO ? Signed By: ?<Electronically signed by Zuri Encinas, DO in OV> ? 01/08/24 1750 ? DD/ 1230 ? TD/TT: 12/27/23 1250 ? Supervisor Elementary Education: ? Procedure Note Fallonter, Image - 01/08/2024 [facility] [address] [place] [address] [place] [address] Mammography Report Signed Patient: Roxana Eugene [facility]#: [id number] 1930 : 1965Acct:[id number] Age/Sex: 58 / FADM Date: 12/27/23 Loc: [facility] Attending Dr: David Dean DEAN OF BOYS Ordering Physician: DAVID DEANults: 1Negative Date of Service: 12/27/23Follow Up: 1 Year From Orig inal Mammogram Procedure(s): MM tomosynthesis screening BI Accession Number(s): [id number] cc: DAVID DEAN NP EXAMINATION: MM SCREENING [...] 01/08/24 1750 DD/ 1230 TD/TT: 12/27/23 1250 Supervisor Elementary Education: David Dean ANP IMG BI PROCEDURES Edited Result - Final * (ABNORMAL) Albumin, Random Urine W/Creatinine (09/20/2023 8:49 AM EDT) Creatinine, Urine 198.52 mg/dL [facility] Microalbumin Urine 127.0 mg/L H [facility] Microalbum Creatinine Ratio Ur 63.9(H) <30 ug/mg cr [facility] Comment:Albumin/Creatinine R atio Reference Ranges: Normal: < 30 ug/mg creatinine Microalbuminuria: 30 - 300 ug/mg creatinineClinical Albuminuria: > 300 ug/mg creatinine Urine 09/20/2023 8:49 AM EDT 09/20/2023 11:27 AM EDT David Dean ANP LAB URINE ORDERABLES Final Resul t Performing Organization Address [facility] Co de Phone Number [facility] [address] [place] [phone] * (ABNORMAL) Lipid Panel, Standard (09/20/2023 8:44 AM EDT) Triglycerides 110 <150 mg/dL [facility] Comment:Desirable Triglyceri de: less than 150 mg/dLBorderline High Triglyceride 150-199 mg/dLHigh Triglyceride: 200-499 mg/dLVery High Triglyceride: greater than or equal to 5OO mg/dL Cholesterol 241(H) <200 mg/dL [facility] Comment:Desirable Cholestero l: less than 200 mg/dLBorderline High Cholesterol: 200-239 mg/dLHigh Cholesterol: greater than 239 mg/dL LDL Cholesterol Calculated 157(H) <100 mg/dL [facility] Comment:Desirable LDL: less than 100 mg/dLNear Optimal/Above Optimal LDL: 110- 129 mg/dLBorderline High LDL: 130-159 mg/dLHigh LDL: 160-189 mg/dLVery High LDL: greater than or equal to 190 mg/dL HDL Cholesterol 62 >40 mg/dL [facility] Comment:Desirable HDL: great er than 40 mg/dL Note: This HDL assay may give artificially low results in patients with liver disease. Blood Venous blood specimen / Unknown 09/20/2023 8:44 AM EDT 09/20/2023 11:34 AM EDT David Dean ANP LAB BLOOD ORDERABLES Final Resul t Performing Organization Address [facility] Co de Phone Number [facility] [address] [place] [address] [phone] * THINPREP TIS PAP AND HPV [...] been evaluated with computer assisted technology. CONVERTED LEGACY LABS Hand Profiler : SEE COMMENT CONVERTED LEGACY LABS Comment: BK,CT(ASCP) CT screening location: [address] HPV nRNA E6/E7 Not Detected Not Detected CONVERTED [employer] Comment: Methodology: [employer] Plasma Etcher-Mediated Amplification This assay detects E6/E7 viral messenger RNA (mRNA) from 14 high-risk HPV types (16,18,31,33,35,39,45,51,52,56,58,59,66,68). ? Cervical sources are required for HPV testing. If a vaginal source from a patient who has had a total hysterectomy with removal of cervix was ?? submitted, please contact the testing laboratory for alternative testing options. ?? For additional information, please refer to http://education.Given.to/faq/YHB070j8 (This link if provided for information/ educational [...] present. 02/27/2022 11:3 6 AM EST Diana Dc CNM LAB PATHOLOGY ORDERABLES Final Result CONVERTED LEGACY LABS * HEPATITIS C AB W/REFL TO HCV RNA, QN, PCR (05/25/2020 8:55 AM EST) HEPATITIS C ANTIBODY NON-REACT JOHAN NON-REACT JOHAN [facility] INDEX 0.06 <1.00 [facility] Comment: ?? HCV antibody was non-reactive. There is no laboratory ?? evidence of HCV infection. ?? In most cases, no further action is required. However, if recent HCV exposure is suspected, a test for HCV RNA (test code 94082) is suggested. ?? For additional information please refer to http://Car [employer]U.Given.[email or web address]/faq/LEB80v9 (This link is being provided for informational/ educational purposes only.) ?? 05/25/2020 8:55 AM EST us David Dean ANP HISTORICAL/NON ORDERABLE LABS Fi nal Result Performing Organization Address [facility] de Phone Number [facility] [address] * HIV 1/2 ANTIGEN/ANTIBODY,FOURTH GENERATION W/RFL [...] ? For additional information please refer to http://[employer].Given.to/faq/PLS890 (This link is being provided for informational/ educational purposes only.) ? The performance of this assay has not been clinically validated in patients less than 2 years old. ?? 05/25/2020 8:55 AM EST us David MARTINEZ LAB BLOOD ORDERABLES Final Resul t Performing Organization Address [facility] Co de Phone Number [facility] [address] [place], [place] [phone], from Last 3 Months or Most Recently Relevant to Health Maintenance Insurance [facility] C3 HS FULL Care Teams Meal Room Hand Relationship Specialty Start Date End Date David Dean ANP [address] [place] [phone] PCP - General Family Medicine 03/22/20
[2024-08-15 09:27] LABS: Alanine Aminotransferase 17 U/L (0-31); Albumin Level 4.1 g/dL (3.5-5.0); Alkaline Phosphatase 68 U/L (39-117); Anion Gap 12 (12-20); Aspartate Amino Transferase 18 U/L (5-31); Bilirubin Total 0.3 mg/dL (0.0-1.0); Blood Urea Nitrogen 12 mg/dL (9-16); Calcium 9.4 mg/dL (8.4-10.2); Carbon Dioxide 26 mmol/L (22-29); Chloride 109 mmol/L (96-108); Cholesterol 148 mg/dL (<200); Estimated Glomerular Filt Rate > 60; Glucose Random 96 mg/dL (60-115); HDL Cholesterol 53 mg/dL (>40); LDL Cholesterol Calculated 83 mg/dL (<100); Potassium 4.5 mmol/L (3.3-5.1); Sodium 142 mmol/L (135-145); Total Protein 7.3 g/dL (6.5-8.0); Triglycerides 60 mg/dL (<150)
[2024-08-15 09:44] LABS: TSH reflex Free T4 1.65 uIU/mL (0.32-4.0); Vitamin D 25-OH Total 31.3 ng/mL (>30)
[2024-08-15 11:35] LABS: Vitamin B12 496 pg/mL (200-900)
== END 2024-08-15 07:39 | disposition home or self-care (01) ==
LOC: HO.LAB 07:38
PROVIDERS: PCP Nurse Practitioner Primary Care; Visit Provider Nurse Practitioner Primary Care
DX: E11.69 Type 2 diabetes mellitus with other specified complication (principal); E78.5 Hyperlipidemia, unspecified; Z86.39 Personal history of other endocrine, nutritional and metabolic disease
CPT/HCPCS: 36415; 80053; 80061; 82306; 82607; 84443

== ENCOUNTER 2025-03-03 10:46 | Outpatient (REF) | payer MEDICAID, SELFPAY ==
--- NOTE | ~2025-03-03 | MM_ITS ---
EXAMINATION: MM SCREENING DIGITAL BREAST TOMOSYNTHESIS, BILATERAL CLINICAL INFORMATION: Screening. Asymptomatic. COMPARISON: Mammography: Comparison is made with available priors TECHNIQUE: Digital breast mammography with tomosynthesis is performed in both the craniocaudal and mediolateral oblique views along with computer-aided detection (CAD). FINDINGS: There are scattered areas of fibroglandular density. There are no significant masses, abnormal calcifications, or other abnormalities. MM/MM tomosynthesis screening BI IMPRESSION: No mammographic evidence of malignancy. ASSESSMENT: BI-RADS Category 1: Negative RECOMMENDATION: Routine annual mammography screening. 1 year F/U This examination should not preclude the clinical evaluation of a suspicious palpable abnormality. This patient's information was entered into a reminder system with a target due date for their next mammogram. Electronically signed by: Zuri Encinas DO 03/03/2025 11:32 AM JUAN ALBERTO
== END 2025-03-03 10:47 | disposition home or self-care (01) ==
LOC: HO.MAMMO 10:46
PROVIDERS: PCP Nurse Practitioner Primary Care; Visit Provider Obstetrics & Gynecology
DX: Z12.31 Encounter for screening mammogram for malignant neoplasm of breast (principal)
CPT/HCPCS: 77063; 77067

== ENCOUNTER → 2025-03-03 16:30 | Outpatient (BNV) | payer MEDICAID, SELFPAY | PROVIDERS: PCP Nurse Practitioner Primary Care; Visit Provider Internal Medicine | DX: Z12.31 Encounter for screening mammogram for malignant neoplasm of breast (principal) | CPT/HCPCS: 77063; 77067 ==